=== PATIENT | male | born 1990 | race American Indian/Alaskan Native ===

== ENCOUNTER 2018-04-21 02:51 | Emergency (ER) | payer SELFPAY ==
[2018-04-21] MEDS ORDERED: MORPHINE ONE (03:40)
[2018-04-21] MEDS ORDERED: ZOFRAN ONE (03:41)
--- NOTE | 2018-04-21 04:00 | XRay Report ---
FINAL REPORT PROCEDURE: XR SHOULDER 2+V LT TECHNIQUE: Left shoulder radiographs including AP views in internal and external rotation and abduction. CPT 66195 HISTORY: possible left shoulder dislocation COMPARISON: No prior studies are available for comparison. FINDINGS: Fracture (s) and/or Dislocation(s): There is anterior dislocation of the glenohumeral joint.. Joint space(s): Normal . Soft tissues: Normal . Bone mineralization: Normal . Foreign bodies: None . IMPRESSION: Anterior dislocation of the left glenohumeral joint. There is no fracture.
[2018-04-21] MEDS ORDERED: MORPHINE IM ONE (04:04)
[2018-04-21] MEDS ORDERED: ZOFRAN IV ONE ×2 (04:05→05:55)
[2018-04-21] MEDS ORDERED: MORPHINE IV ONE ×2 (04:10→05:54)
[2018-04-21] MEDS ORDERED: KETALAR IV ONE ×2 (06:26→07:00)
[2018-04-21] MEDS ORDERED: DIPRIVAN 10 MG/ML IV ONE (06:26)
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
[2018-04-21 10:19] VITALS: BP 120/87
== END 2018-04-21 09:30 | disposition home or self-care (01) ==
LOC: ED 02:51
DX: S43.005A Unspecified dislocation of left shoulder joint, initial encounter (principal); J45.909 Unspecified asthma, uncomplicated; G43.909 Migraine, unspecified, not intractable, without status migrainosus; F17.200 Nicotine dependence, unspecified, uncomplicated; V49.59XA Passenger injured in collision with other motor vehicles in traffic accident, initial encounter; Y93.89 Activity, other specified; Y92.89 Other specified places as the place of occurrence of the external cause; Y99.8 Other external cause status
CPT/HCPCS: 23650; 71045; 73020; 73030; 73070; 96374; 96375; 96376; 99284; J2270; J2405; J2704